=== PATIENT | male | born 1970 | race American Indian/Alaskan Native ===

== ENCOUNTER 2020-05-28 10:46 | Emergency (ER) | payer SELFPAY ==
[2020-05-28 11:17] VITALS: BP 149/107
--- NOTE | 2020-05-28 11:53 | XRay Report ---
XR chest routine 2V INDICATION / CLINICAL INFORMATION: chest pain. COMPARISON: None available. FINDINGS: SUPPORT DEVICES: None. HEART /PULMONARY VASCULATURE: No significant abnormality. LUNGS / PLEURA: No significant pulmonary or pleural abnormality. No pneumothorax. ADDITIONAL FINDINGS: No significant additional findings. IMPRESSION: 1. No acute findings. Signer Name: Alberto Graff MD Signed: 05/28/2020 11:49 AM Workstation Name: [id number]
[2020-05-28 12:39] LABS: Basophils % (Auto) 0.3 % (0.0-1.8); Eosinophils % (Auto) 0.9 % (0.0-4.3); Hematocrit 46.2 % (35.5-45.6); Hemoglobin 15.8 gm/dl (11.8-15.2); Lymphocytes # (Auto) 1.8 K/mm3 (1.2-5.4); Lymphocytes % (Auto) 36.1 % (13.4-35.0); Mean Corpuscular HGB Conc 34 % (32-34); Mean Corpuscular Volume 88 fl (84-94); Monocytes # (Auto) 0.4 K/mm3 (0.0-0.8); Platelet Count 215 K/mm3 (140-440); Red Blood Count 5.25 M/mm3 (3.65-5.03); Red Cell Distribution Width 13.7 % (13.2-15.2)
[2020-05-28 13:01] LABS: Alanine Aminotransferase 12 units/L (7-56); Albumin 3.8 g/dL (3.9-5); BUN/Creatinine Ratio 7; Blood Urea Nitrogen 9 mg/dL (9-20); Calcium 8.8 mg/dL (8.4-10.2); Hemolysis Index 3
== END 2020-05-28 13:49 | disposition left against medical advice (07) ==
LOC: ED 10:46
DX: R07.9 Chest pain, unspecified (principal); Z53.21 Procedure and treatment not carried out due to patient leaving prior to being seen by health care provider
CPT/HCPCS: 36415; 71046; 80053; 83880; 84484; 85025; 93005

== ENCOUNTER 2020-05-31 05:27 | Inpatient (IN) | payer OTHER ==
--- NOTE | 2020-05-31 06:48 | Ultrasound Report ---
ULTRASOUND ABDOMEN, LIMITED (RIGHT UPPER QUADRANT) INDICATION: RUQ Pain. COMPARISON: None available. FINDINGS: Pancreas: Visualized portion shows no significant abnormality. Liver: Mild increased echotexture characteristic for steatosis. Liver measures 16.7 cm Gallbladder: 1 cm gallstone with moderate gallbladder wall thickening and small amount of pericholecy stic fluid Bile ducts: Normal. Common Bile Duct measures 4 mm. Free fluid: None. Additional Findings: None. IMPRESSION: 1. Cholelithiasis with acute cholecystitis Signer Name: Marc Metz MD Signed: 05/31/2020 6:43 AM Workstation Name: [id number]
[2020-05-31 07:32] LABS: INR 1.25 (0.87-1.13)
[2020-05-31] MEDS ORDERED: ONDANSETRON 4 MG ODT TAB PO ONE (07:37)
[2020-05-31] MEDS ORDERED: MORPHINE 4 MG/1 ML INJ IV ONE (07:37)
[2020-05-31] MEDS ORDERED: SODIUM CHLORIDE 0.9% 1000 ML 1,000 ML IV ONE (07:38)
[2020-05-31] MEDS ORDERED: PIPERACIL/TAZOBACTA 4.5/NS 100 4.5 GM/100 ML VIAL IV ONE (07:38)
[2020-05-31 08:07] LABS: Hematocrit 49.3 % (35.5-45.6); Hemoglobin 16.8 gm/dl (11.8-15.2); Mean Corpuscular HGB Conc 34 % (32-34); Mean Corpuscular Volume 89 fl (84-94); Red Blood Count 5.57 M/mm3 (3.65-5.03)
[2020-05-31 08:08] LABS: Platelet Count 221 K/mm3 (140-440); Red Cell Distribution Width 13.5 % (13.2-15.2)
[2020-05-31] MEDS ORDERED: LACTATED RINGERS 1000 ML IV SOLN IV ONE (08:12)
--- NOTE | 2020-05-31 09:29 | Emergency Department Report ---
ED General Adult HPI - General Chief complaint: Abdominal Pain Stated complaint: RT SIDE PAIN PUI?: No Time Seen by Provider: 05/31/20 08:25 Source: patient, RN notes reviewed, old records reviewed Mode of arrival: Wheelchair Limitations: No Limitations - History of Present Illness Initial comments: The patient was evaluated in the emergency department for symptoms described in the history of present illness. He/she was evaluated in the context of the global COVID-19 pandemic, which necessitated consideration that the patient might be at risk for infection with the virus that causes COVID-19. Institutional protocols and algorithms that pertain to the evaluation of patients at risk for COVID-19 are in a state of rapid change based on information released by regulatory bodies including the CDC and federal and state organizations. These policies and algorithms were followed during the patient's care in the emergency department. Please note that these policies, procedures and recommendations changed on a rapid basis. This is a pleasant and calm 49-year-old gentleman. He is not known to myself previously. He presents to the ER today with a complaint of persistent epigastric and right upper quadrant pain, present for the past 2 to 3 days. His pain is sharp, increases with palpation, deep inspiration. Positive chills, subjective fever. No loss of taste or smell. No travel, surgery, oral contraceptive use, DVT or pulmonary embolism risk factors. No headache, neck pain, shortness of breath, positive nausea, no vomiting, no lower abdominal pain, no testicular pain. -: Gradual, days(s) Radiation: non-radiation Severity scale (0 -10): 7 Quality: aching Consistency: constant Improves with: medication, rest Worsens with: movement, other (Palpation, deep inspiration) - Related Data Allergies Allergy/AdvReac Type Severity Reaction Status Date / Time No Known Allergies Allergy Unverified 05/28/20 11:06 ED Review of Systems ROS: Stated complaint: RT SIDE PAIN Other details as noted in HPI Constitutional: chills, fever, malaise, weakness Eyes: denies: eye discharge Respiratory: denies: shortness of breath Cardiovascular: denies: chest pain Gastrointestinal: abdominal pain, nausea, vomiting Genitourinary: denies: dysuria Musculoskeletal: denies: back pain Neurological: weakness Hematological/Lymphatic: denies: easy bleeding ED Past Medical Hx - Past Medical History Previous Medical History?: No - Surgical History Past Surgical History?: No - Social History Smoking Status: Current Every Day Smoker Substance Use Type: Marijuana ED Physical Exam - General Limitations: No Limitations General appearance: alert, anxious - Head Head exam: Present: atraumatic, normocephalic - Eye Eye exam: Present: normal appearance, EOMI. Absent: nystagmus - ENT ENT exam: Present: normal exam, normal orophraynx, mucous membranes moist, andry l external ear exam - Neck Neck exam: Present: normal inspection, full ROM. Absent: tenderness, meningismus - Respiratory Respiratory exam: Absent: respiratory distress, wheezes, rales, rhonchi, stridor, decreased breath sounds - Cardiovascular Cardiovascular Exam: Present: normal rhythm, tachycardia, normal heart sounds. Absent: bradycardia, irregular rhythm, systolic murmur, diastolic murmur, rubs, gallop - GI/Abdominal GI/Abdominal exam: Present: soft, tenderness, guarding, other (Right upper quadrant tenderness. Positive Trejo sign.). Absent: distended, rebound, rigid, pulsatile mass - Rectal Rectal exam: Present: deferred - Extremities Exam Extremities exam: Present: normal inspection, full ROM, other (2+ pulses noted in the bilateral upper and lower extremities. There is no palpable cord. negative Homans sign. Muscular compartments are soft. The pelvis is stable.). Absent: pedal edema, calf tenderness - Back Exam Back exam: Present: normal inspection, full ROM. Absent: tenderness, CVA tenderness (R), CVA tenderness (L), paraspinal tenderness, vertebral tenderness - Neurological Exam Neurological exam: Present: alert, oriented X3, other (No facial droop. Tongue midline. Extraocular movements intact bilaterally. Facial sensation intact to light touch in V1, V2, V3 distribution bilaterally. 5 and a 5 strength in 4 extremities. Sensation intact to light touch in 4 extremities.). Absent: motor sensory deficit - Psychiatric Psychiatric exam: Present: anxious - Skin Skin exam: Present: warm, dry, intact, normal color. Absent: rash ED Course Vital Signs 05/31/20 05/31/20 05:36 07:40 Temperature 99.9 F H 100.6 F H Pulse Rate 116 H 118 H Respiratory 17 20 Rate Blood Pressure 126/87 121/85 O2 Sat by Pulse 94 97 Oximetry ED Medical Decision Making - Lab Data Result diagrams: 05/31/20 06:39 05/31/20 06:39 Vital Signs 05/31/20 05/31/20 05:36 07:40 Temperature 99.9 F H 100.6 F H Pulse Rate 116 H 118 H Respiratory 17 20 Rate Blood Pressure 126/87 121/85 O2 Sat by Pulse 94 97 Oximetry Lab Results 05/31/20 05/31/20 Range/Units 06:39 06:39 WBC 18.5 H (4.5-11.0) K/mm3 RBC 5.57 H (3.65-5.03) M/mm3 Hgb 16.8 H (11.8-15.2) gm/dl Hct 49.3 H (35.5-45.6) % MCV 89 (84-94) fl MCH 30 (28-32) pg MCHC 34 (32-34) % RDW 13.5 (13.2-15.2) % Plt Count 221 (140-440) K/mm3 PT 15.7 H (12.2-14.9) Sec. INR 1.25 H (0.87-1.13) - EKG Data -: EKG Interpreted by Nv EKG shows normal: sinus rhythm Rate: tachycardia - EKG Data 05/31/20 10:08 Time of interpretation, 9: 32 AM Sinus rhythm, tachycardia, 112 bpm. Left axis deviation, borderline left anterior fascicular block, left ventricular hypertrophy, QTC prolonged, 441 ms. This is an abnormal EKG. This is not a STEMI. - Radiology Data Radiology results: report reviewed, image reviewed ULTRASOUND ABDOMEN, LIMITED (RIGHT UPPER QUADRANT) INDICATION: RUQ Pain. COMPARISON: None available. FINDINGS: Pancreas: Visualized portion shows no significant abnormality. Liver: Mild increased echotexture characteristic for steatosis. Liver measures 16.7 cm Gallbladder: 1 cm gallstone with moderate gallbladder wall thickening and small amount of pericholecystic fluid Bile ducts: Normal. Common Bile Duct measures 4 mm. Free fluid: None. Additional Findings: None. IMPRESSION: 1. Cholelithiasis with acute cholecystitis Signer Name: Marc Metz MD Signed: 05/31/2020 5:43 AM Workstation Name: [id number] XR chest routine 2V INDICATION / CLINICAL INFORMATION: chest pain. COMPARISON: None available. FINDINGS: SUPPORT DEVICES: None. HEART /PULMONARY VASCULATURE: No significant abnormality. LUNGS / PLEURA: No significant pulmonary or pleural abnormality. No pneumothorax. ADDITIONAL FINDINGS: No significant additional findings. IMPRESSION: 1. No acute findings. Signer Name: Alberto Graff MD Signed: 05/28/2020 10:49 AM Workstation Name: [id number] - Medical Decision Making Differential diagnosis, including but not limited to: Sepsis, cholecystitis Assessment and plan: 49-year-old gentleman presenting with epigastric and right upper quadrant pain/tenderness, Trejo sign, suspicious for cholecystitis. Laboratory studies, right upper quadrant ultrasound were ordered prior to my personal evaluation. EKG reviewed and appreciated. Given fever, tachycardia, leukocytosis, patient ruling in for sepsis, although not septic shock. Lactic acid, lipase are pending at this time. When compared to prior laboratory studies from few days ago, has new onset mild transaminitis, and hyperbilirubinemia, As well as mild hypokalemia. Fluids, antibiotics and potassium supplementation will be administered. I contacted general surgery on-call, Dr. Aldana, and we discussed the patient's history, physical, imaging studies and pertinent laboratory studies. She will follow in consultation, and recommends MRCP to further evaluate biliary anatomy. As per this current hospital's policy, procedure and protocol, this is not an emergently required MRI, and administratively it is preferred that the inpatient team order these the studies. Hospital physician, Dr. Eliana Looney to admit I have discussed this plan of care with the patient, who verbalized understanding, and is amenable to this plan of care. Critical care attestation.: If time is entered above; I have spent that time in minutes in the direct care of this critically ill patient, excluding procedure time. ED Disposition Clinical Impression: Sepsis, Cholecystitis, Hypokalemia, Hyperbilirubinemia Disposition: OP ADMIT IP TO THIS HOSP Is pt being admited?: Yes Does the pt Need Aspirin: No Condition: Good Referrals: PRIMARY CARE,MD [Primary Care Provider] - 3-5 Days
[2020-05-31] MEDS ORDERED: HYDROmorphone 1 MG/1 ML INJ IV ONE (09:38)
[2020-05-31 09:42] LABS: BUN/Creatinine Ratio 11; Blood Urea Nitrogen 14 mg/dL (9-20)
[2020-05-31 09:43] LABS: Alanine Aminotransferase 85 units/L (7-56); Albumin 3.3 g/dL (3.9-5); Calcium 9.2 mg/dL (8.4-10.2); Hemolysis Index 8
[2020-05-31 09:46] LABS: Monocytes % (Auto) 5.2 % (0.0-7.3)
[2020-05-31] MEDS ORDERED: POTASSIUM CHLORIDE ER 20 MEQ TAB PO ONE (10:02)
[2020-05-31] MEDS ORDERED: ACETAMINOPHEN 325 MG TAB PO PRN (10:21)
[2020-05-31] MEDS ORDERED: MORPHINE 2 MG/1 ML INJ IV PRN (10:21)
[2020-05-31] MEDS ORDERED: hydrALAZINE 20 MG/1 ML INJ IV PRN (10:21)
[2020-05-31] MEDS ORDERED: ONDANSETRON 4 MG/2 ML INJ IV PRN ×2 (10:21→15:27)
--- NOTE | 2020-05-31 10:21 | Progress Note ---
Subjective Date of service: 05/31/20 Interval history: This is a pleasant and calm 49-year-old gentleman. He is not known to myself previously. He presents to the ER today with a complaint of persistent epigastric and right upper quadrant pain, present for the past 2 to 3 days. His pain is sharp, increases with palpation, deep inspiration. Positive chills, subjective fever. No loss of taste or smell. No travel, surgery, oral contraceptive use, DVT or pulmonary embolism risk factors. Objective - Constitutional Vitals: Vital Signs - 12hr 05/31/20 05/31/20 05/31/20 05:36 07:40 10:08 Temperature 99.9 F H 100.6 F H Pulse Rate 116 H 118 H Respiratory 17 20 18 Rate Blood Pressure 126/87 121/85 O2 Sat by Pulse 94 97 Oximetry - Labs CBC & Chem 7: 05/31/20 06:39 05/31/20 06:39 Labs: Abnormal lab results 05/31/20 05/31/20 05/31/20 Range/Units 06:39 06:39 06:39 WBC 18.5 H (4.5-11.0) K/mm3 RBC 5.57 H (3.65-5.03) M/mm3 Hgb 16.8 H (11.8-15.2) gm/dl Hct 49.3 H (35.5-45.6) % [place] # (Auto) 1.0 H (0.0-0.8) K/mm3 Seg Neutrophils # 16.9 H (1.8-7.7) K/mm3 PT 15.7 H (12.2-14.9) Sec. INR 1.25 H (0.87-1.13) Sodium 134 L (137-145) mmol/L Potassium 3.4 L D (3.6-5.0) mmol/L Chloride 96.7 L (98-107) mmol/L Glucose 137 H (75-100) mg/dL Total Bilirubin 1.30 H (0.1-1.2) mg/dL ALT 85 H (7-56) units/L Albumin 3.3 L (3.9-5) g/dL
[2020-05-31 10:46] LABS: Total Cells Counted 100
[2020-05-31 10:47] LABS: Platelet Estimate Consistent w Auto; RBC Morphology Normal
[2020-05-31] MEDS: POTASSIUM CHLORIDE 10 MEQ 10 MEQ/100 ML BAG IV SCH ×2 (11:51→13:24)
--- NOTE | 2020-05-31 12:21 | Consultation ---
History of Present Illness Consult date: 05/31/20 Reason for consult: gallstones - History of present illness History of present illness: 49 year old male presented to ED with a one day hx of RUQ abdominal pain nausea and vomiting. He says he has never had this pain before. An US showed gallstones with patrick-cholecystic fluid. WBC 18.5, and febrile to 100.6. Past History Past Medical History: No medical history Past Surgical History: No surgical history Social history: smoking, other (marajiauna). denies: prescription drug abuse, IV drug use Medications and Allergies Allergies Allergy/AdvReac Type Severity Reaction Status Date / Time No Known Allergies Allergy Verified 05/31/20 10:09 Active Meds: Active Medications Acetaminophen (Acetaminophen 325 Mg Tab) 650 mg PO Q4H PRN PRN Reason: Pain MILD(1-3)/Fever >100.5/MOODY Hydralazine HCl (Hydralazine 20 Mg/1 Ml Inj) 5 mg IV Q30MIN PRN PRN Reason: Hypertension Potassium Chloride (Kcl 10meq/100ml) 10 meq in 100 mls @ 100 mls/hr IV Q1H JENNIFER Stop: 05/31/20 12:59 Last Admin: 05/31/20 11:51 Dose: 100 mls/hr Documented by: Ceftriaxone Sodium (Rocephin/Ns 1 Gm/50 Ml) 1 gm in 50 mls @ 100 mls/hr IV Q12HR JENNIFER; Protocol Sodium Chloride (Nacl 0.9% 1000 Ml) 1,000 mls @ 100 mls/hr IV DIRECT JENNIFER Morphine Sulfate (Morphine 2 Mg/1 Ml Inj) 2 mg IV Q4H PRN PRN Reason: Pain, Moderate (4-6) Ondansetron HCl (Ondansetron 4 Mg/2 Ml Inj) 4 mg IV Q8H PRN PRN Reason: N/V unrelieved by Reglan Review of Systems - Constitutional poor appetite - Cardiovascular no chest pain - Respiratory no cough - Gastrointestinal abdominal pain, nausea, vomiting, no jaundice - Genitourinary no dysuria Exam Vital Signs Temp Pulse Resp BP Pulse Ox 99.9 F H 116 H 17 126/87 94 05/31/20 05:36 05/31/20 05:36 05/31/20 05:36 05/31/20 05:36 05/31/20 05:36 - General physical appearance Positive: well developed, no distress, moderate pain - Cardiovascular Heart Sounds: Present: S1 & S2 - Extremities Extremities: no ischemia - Abdomen Abdomen: Present: soft, other (tender to palpation RUQ and epigastric area). Absent: guarding, rigid Results - Labs 05/31/20 06:39 05/31/20 06:39 Abnormal lab results 05/31/20 05/31/20 05/31/20 Range/Units 06:39 06:39 06:39 WBC 18.5 H (4.5-11.0) K/mm3 RBC 5.57 H (3.65-5.03) M/mm3 Hgb 16.8 H (11.8-15.2) gm/dl Hct 49.3 H (35.5-45.6) % Andrews # (Auto) 1.0 H (0.0-0.8) K/mm3 Seg Neuts % (Manual) 91.0 H (40.0-70.0) % Lymphocytes % (Manual) 3.0 L (13.4-35.0) % Seg Neutrophils # 16.9 H (1.8-7.7) K/mm3 Seg Neutrophils # Man 16.8 H (1.8-7.7) K/mm3 Lymphocytes # (Manual) 0.6 L (1.2-5.4) K/mm3 Monocytes # (Manual) 1.1 H (0.0-0.8) K/mm3 PT 15.7 H (12.2-14.9) Sec. INR 1.25 H (0.87-1.13) Sodium 134 L (137-145) mmol/L Potassium 3.4 L D (3.6-5.0) mmol/L Chloride 96.7 L (98-107) mmol/L Glucose 137 H (75-100) mg/dL Total Bilirubin 1.30 H (0.1-1.2) mg/dL ALT 85 H (7-56) units/L Albumin 3.3 L (3.9-5) g/dL Diabetes panel 05/31/20 Range/Units 06:39 Sodium 134 L (137-145) mmol/L Potassium 3.4 L D (3.6-5.0) mmol/L Chloride 96.7 L (98-107) mmol/L Carbon Dioxide 24 (22-30) mmol/L BUN 14 (9-20) mg/dL Creatinine 1.3 (0.8-1.3) mg/dL Glucose 137 H (75-100) mg/dL Calcium 9.2 (8.4-10.2) mg/dL AST 27 (5-40) units/L ALT 85 H (7-56) units/L Alkaline Phosphatase 102 (35-129) units/L Total Protein 7.5 (6.3-8.2) g/dL Albumin 3.3 L (3.9-5) g/dL Calcium panel 05/31/20 Range/Units 06:39 Calcium 9.2 (8.4-10.2) mg/dL Albumin 3.3 L (3.9-5) g/dL Pituitary panel 05/31/20 Range/Units 06:39 Sodium 134 L (137-145) mmol/L Potassium 3.4 L D (3.6-5.0) mmol/L Chloride 96.7 L (98-107) mmol/L Carbon Dioxide 24 (22-30) mmol/L BUN 14 (9-20) mg/dL Creatinine 1.3 (0.8-1.3) mg/dL Glucose 137 H (75-100) mg/dL Calcium 9.2 (8.4-10.2) mg/dL Adrenal panel 05/31/20 Range/Units 06:39 Sodium 134 L (137-145) mmol/L Potassium 3.4 L D (3.6-5.0) mmol/L Chloride 96.7 L (98-107) mmol/L Carbon Dioxide 24 (22-30) mmol/L BUN 14 (9-20) mg/dL Creatinine 1.3 (0.8-1.3) mg/dL Glucose 137 H (75-100) mg/dL Calcium 9.2 (8.4-10.2) mg/dL Total Bilirubin 1.30 H (0.1-1.2) mg/dL AST 27 (5-40) units/L ALT 85 H (7-56) units/L Alkaline Phosphatase 102 (35-129) units/L Total Protein 7.5 (6.3-8.2) g/dL Albumin 3.3 L (3.9-5) g/dL - Imaging US - abdomen: report reviewed, image reviewed Assessment and Plan 49 year old male with acute cholecystitis likely due to cholelithiasis. Febrile, with leukocytosis and stable. Pt consented for lap lucero for today. He signed informed consent and expressed understanding of the risks and benefits.
[2020-05-31] MEDS: SODIUM CHLORIDE 0.9% 1000 ML 1,000 ML IV SCH (13:23)
--- NOTE | 2020-05-31 13:39 | Anesthesia Consultation ---
Anesthesia Consult and Med Hx Date of service: 05/31/20 - Airway Anesthetic Teeth Evaluation: Good (missing multiple ) ROM Head & Neck: Adequate Mental/Hyoid Distance: Adequate Mallampati Class: Class II Intubation Access Assessment: Probably Good - Pre-Operative Health Status ASA Pre-Surgery Classification: ASA2 Proposed Anesthetic Plan: General - Pulmonary Hx Smoking: Yes (1/2 PPD) Hx Asthma: No Hx Respiratory Symptoms: No SOB: No COPD: No Home Oxygen Therapy: No Hx Pneumonia: No Hx Sleep Apnea: No - Cardiovascular System Hx Hypertension: No Hx Coronary Artery Disease: No Hx Heart Attack/AMI: No Hx Angina: No Hx Percutaneous Transluminal Coronary Angioplasty (PTCA): No Hx Cardia Arrhythmia: No Hx Pacemaker: No Hx Internal Defibrillator: No Hx Valvular Heart Disease: No Hx Heart Murmur: No Hx Peripheral Vascular Disease: No - Central Nervous System Hx Neuromuscular Disorder: No Hx Seizures: No CVA: No Hx Back Pain: No Hx Psychiatric Problems: No - Gastrointestinal Hx Ulcer: No Hx Gastroesophageal Reflux Disease: No - Endocrine Hx Renal Disease: No Hx End Stage Renal Disease: No Hx Cirrhosis: No Hx Liver Disease: No Hx Insulin Dependent Diabetes: No Hx Non-Insulin Dependent Diabetes: No Hx Thyroid Disease: No Hx Hypothyroidism: No Hx Hyperthyroidism: No - Hematic Hx Anemia: No Hx Sickle Cell Disease: No - Other Systems Hx Alcohol Use: Yes (1/2 bottle Jin or brown ETOH daily ) Hx Substance Use: Yes (marijuana ) Hx Cancer: No Hx Obesity: No
--- NOTE | 2020-05-31 13:43 | Anesthesia Day of Surgery ---
Anesthesia Day of Surgery - Day of Surgery Patient Examined: Yes Patient H&P Reviewed: Yes Patient is NPO: Yes
[2020-05-31] MEDS ORDERED: ePHEDrine SULFATE 50 MG/1 ML INJ ONE (14:04)
[2020-05-31] MEDS ORDERED: PHENYLEPHRINE/NS 1,000 MCG/10 ML SYRINGE (OR USE) IV ONE (14:08)
[2020-05-31] MEDS ORDERED: LIDOCAINE MPF (2%) 20 MG/1 ML VIAL 5 ML ONE (14:08)
[2020-05-31] MEDS ORDERED: NEOSTIGMINE 10MG/10 ML INJ MDV ONE (14:08)
[2020-05-31] MEDS ORDERED: ONDANSETRON 4 MG/2 ML INJ ONE (14:08)
[2020-05-31] MEDS ORDERED: GLYCOPYRROLATE 0.4 MG/2 ML INJ ONE (14:08)
[2020-05-31] MEDS ORDERED: dexAMETHasone 20 MG/5 ML VIAL ONE (14:08)
[2020-05-31] MEDS ORDERED: ROCURONIUM 50 MG/5 ML INJ IV ONE (14:08)
[2020-05-31] MEDS ORDERED: fentaNYL 100 MCG/2 ML INJ ONE ×2 (14:08→14:23)
[2020-05-31] MEDS ORDERED: SUCCINYLCHOLINE CHLORIDE 200 MG/10 ML INJ MDV ONE (14:08)
[2020-05-31] MEDS ORDERED: propofoL 200 MG/20 ML VIAL IV ONE (14:09)
[2020-05-31] MEDS ORDERED: MIDAZOLAM 2 MG/2 ML INJ ONE (14:21)
[2020-05-31] MEDS ORDERED: metroNIDAZOLE/NS 500 MG/100 ML 500 MG/100 ML BAG IV ONE (14:40)
[2020-05-31] MEDS ORDERED: LIDOCAINE (1%) 10 MG/1 ML VIAL 20 ML MDV INFILTRATI ONE (15:03)
[2020-05-31] MEDS ORDERED: BUPIVACAINE/PF (0.5%) 5 MG/1 ML 30 ML VIAL INFILTRATI ONE (15:03)
[2020-05-31] MEDS ORDERED: SODIUM CHLORIDE 0.9% IRRIG SOLN 2000 ML IR ONE (15:04)
[2020-05-31] MEDS ORDERED: SODIUM CHLORIDE 0.9% IRR 1,500 ML BOTTLE IR ONE (15:04)
[2020-05-31] MEDS ORDERED: HYDROmorphone 1 MG/1 ML INJ IV PRN (15:27)
[2020-05-31] MEDS ORDERED: KETOROLAC 30 MG/1 ML INJ ONE (16:17)
[2020-05-31] MEDS ORDERED: LACTATED RINGERS 1,000 ML ONE (16:17)
[2020-05-31] MEDS ORDERED: HYDROmorphone 1 MG/1 ML INJ ONE (16:35)
--- NOTE | 2020-05-31 16:42 | History and Physical Report ---
History of Present Illness Date of examination: 05/31/20 Date of admission: 05/31/20 10:04 Chief complaint: abdominal pain History of present illness: This is a pleasant and calm 49-year-old gentleman with no prior medical History presents to the ER today with a complaint of persistent epigastric and right upper quadrant pain, present for the past 2 to 3 days. His pain is sharp, increases with palpation, deep inspiration, food intake, associated with chills, subjective fever. In the ER An US showed gallstones with patrick-cholecystic fluid. WBC 18.5, and febrile to 100.6. GS consulted, patient being admitted for acute cholecystitis. Past History Past Medical History: No medical history Past Surgical History: No surgical history Social history: smoking, alcohol abuse, other (marajiauna). denies: prescription drug abuse, IV drug use Family history: no significant family history Medications and Allergies Allergies Allergy/AdvReac Type Severity Reaction Status Date / Time No Known Allergies Allergy Verified 05/31/20 10:09 Active Meds: Active Medications Acetaminophen (Acetaminophen 325 Mg Tab) 650 mg PO Q4H PRN PRN Reason: Pain MILD(1-3)/Fever >100.5/MOODY Hydralazine HCl (Hydralazine 20 Mg/1 Ml Inj) 5 mg IV Q30MIN PRN PRN Reason: Hypertension Hydromorphone HCl (Hydromorphone 1 Mg/1 Ml Inj) 0.5 mg IV Q10MIN PRN PRN Reason: Pain , Severe (7-10) Ceftriaxone Sodium (Rocephin/Ns 1 Gm/50 Ml) 1 gm in 50 mls @ 100 mls/hr IV Q12HR JENNIFER; Protocol Sodium Chloride (Nacl 0.9% 1000 Ml) 1,000 mls @ 100 mls/hr IV DIRECT JENNIFER Last Admin: 05/31/20 13:23 Dose: 100 mls/hr Documented by: Morphine Sulfate (Morphine 2 Mg/1 Ml Inj) 2 mg IV Q4H PRN PRN Reason: Pain, Moderate (4-6) Ondansetron HCl (Ondansetron 4 Mg/2 Ml Inj) 4 mg IV Q8H PRN PRN Reason: N/V unrelieved by Ralph Ondansetron HCl (Ondansetron 4 Mg/2 Ml Inj) 4 mg IV ONCE PRN PRN Reason: Nausea And Vomiting Exam - Physical Exam Narrative exam: GENERAL: well-developed and well-nourished -[place] lying on bed estrella eared to be in no discomfort. HEENT: Normocephalic. Atraumatic. No conjunctival congestion or icterus. Patient has moist mucous membranes. NECK: Supple. Trachea midline. CHEST/LUNGS: Clear to auscultated bilaterally, breathing nonlabored. No wheezes crackles or rhonchi. HEART/CARDIOVASCULAR: Regular in rate and rhythm. S1 and S2 positive. ABDOMEN: Abdomen is soft, + right upper quadrant tender. Patient has normal bowel sounds. SKIN: There is no rash. Warm and dry. NEURO: No focal motor deficit. Follows command. MUSCULOSKELETAL: No joint effusion or tenderness. EXTRIMITY: No edema, no cyanosis or clubbing. PSYCH: Cooperative. - Constitutional Vitals: Temp Pulse Resp BP Pulse Ox 99.4 F 89 22 127/81 94 05/31/20 13:30 05/31/20 13:01 05/31/20 13:01 05/31/20 13:01 05/31/20 13:01 Results - Labs CBC & Chem 7: 05/31/20 06:39 05/31/20 06:39 Labs: Abnormal lab results 05/31/20 05/31/20 05/31/20 Range/Units 06:39 06:39 06:39 WBC 18.5 H (4.5-11.0) K/mm3 RBC 5.57 H (3.65-5.03) M/mm3 Hgb 16.8 H (11.8-15.2) gm/dl Hct 49.3 H (35.5-45.6) % Reeves # (Auto) 1.0 H (0.0-0.8) K/mm3 Seg Neuts % (Manual) 91.0 H (40.0-70.0) % Lymphocytes % (Manual) 3.0 L (13.4-35.0) % Seg Neutrophils # 16.9 H (1.8-7.7) K/mm3 Seg Neutrophils # Man 16.8 H (1.8-7.7) K/mm3 Lymphocytes # (Manual) 0.6 L (1.2-5.4) K/mm3 Monocytes # (Manual) 1.1 H (0.0-0.8) K/mm3 PT 15.7 H (12.2-14.9) Sec. INR 1.25 H (0.87-1.13) Sodium 134 L (137-145) mmol/L Potassium 3.4 L D (3.6-5.0) mmol/L Chloride 96.7 L (98-107) mmol/L Glucose 137 H (75-100) mg/dL Total Bilirubin 1.30 H (0.1-1.2) mg/dL ALT 85 H (7-56) units/L Albumin 3.3 L (3.9-5) g/dL - Imaging and Cardiology US - abdomen: report reviewed Assessment and Plan Acute cholecystitis likely due to cholelithiasis SIRS manifested with leukocytosis, fever, tachycardia -due to acute cholecystitis Mild hyponatremia, due to dehydration Hypokalemia, likely due to nausea and vomiting Abdominal pain, due to acute cholecystitis Nausea vomiting, due to acute cholecystitis --Admit to surgical unit -Continue empiric antibiotics for now, pain management, will continue aggressive IV fluid hydration, replete electrolytes, monitor BMP --Surgery consulted, plan for laparoscopic cholecystectomy today --Monitor vitals, keep n.p.o. --DVT prophylaxis with SCD
--- NOTE | 2020-05-31 17:32 | Post Anesthesia Evaluation ---
- Post Anesthesia Evaluation Patient Participated: Yes Airway Patent: Yes Stable Respiratory Function: Yes Nausea/Vomiting: No Temp > 96.8F: Yes Pain Manageable: Yes Adequeate Hydration: Yes Anesthesia Complications: No
--- NOTE | 2020-05-31 17:35 | Operative Report ---
Operative Report Operative Report: Procedure Performed: Lap cholecystectomy Date of Service: 05/31/20 Primary Surgeon: Zulma Aldana MD Assisted by: Lily Mireles DO Anesthesia: GETA, local at incision sites with 50-50 lidocaine Marcaine mixture Pre-Operative Diagnosis: cholelithiasis, cholecystitis Post-Operative Diagnosis: gangrenous cholecystitis Indications for Procedure: 49 year old male presented to ED with one day acute abdominal pain, n/v. He was febrile with leukocytosis. US showed cholelithiasis, cholecystitis. He was consented for lap lucero. Description of Procedure(s): The patient was brought to the operating room and underwent general anesthesia after lower extremity SCD were placed. The abdomen was prepped and draped in the standard fashion. IV antibiotics were given and a time out was performed. Using a veress needle via a stab incision in the umbilicus, the abdomen was insuflated to a pressure of 15mmHg. Using optivew technique, a 5mm trocar was placed just superior and to the left of the umbilicus. There was no gross injury noted to any intra-abdominal structures. After which working trocars were placed under direct visualization. A 10 mm trocar was placed in the epigastrium, and two more 5 mm trocars were inserted in the right lateral sites. The gallbladder was noted to be tight, distended past the edge of the liver, and had wall colors consistent with necrosis and severe inflammation. The over lying omentum was adhesed to the gallbladder with inflammatory adhesions, these were gently taken down with the suction. The gallbladder could not be grasped due to it being tightly distended, it was then decompressed with a laparoscopic decompression needle. The gallbladder was l ocated and grasped at the fundus and retracted up toward the patient's right shoulder. There was such intense inflammation, but a dome down technique was performed to dissect the gallbladder off of the liver bed. Once the majority of the gallbladder had been dissected free from the liver and we were working at the level of the infundibulum, the cystic artery and duct were skeletonized. These were the only tubular structures traveling into the gallbladder. Both structures were clipped with 5 mm clips, 2 proximal and 1 distal. They were then transected with scissors. There was a small area of bleeding at the liver bed that was controlled after applying pressure with Surgicel. The endocatch bag was placed in the abdomen and the gallbladder was then removed from the abdomen. The liver bed was examined and the trocars removed under direct visualization. The insufflation was then terminated. The epigastric incision was closed with a 0 Vicryl suture. The skin incisions were closed using 4-0 Monocryl sutures. All the wounds dressed with dermabond. The patient tolerated the procedure well, was extubated and taken to the recovery room in satisfactory condition. Finding(s): Gangrenous gallbladder Intra-Operative Complications: none Specimens Removed: Gallbladder Estimated Blood Loss: 50ml Complications: none immediate
[2020-05-31] MEDS: cefTRIAXone/NS 1 GM/50 ML 1 GM/50 ML BAG IV SCH (22:00)
[2020-06-01] MEDS ORDERED: cefTRIAXone/NS 1 GM/50 ML IVPB IV ONE
[2020-06-01 08:34] LABS: BUN/Creatinine Ratio 16; Blood Urea Nitrogen 16 mg/dL (9-20); Calcium 8.6 mg/dL (8.4-10.2); Hemolysis Index 3
[2020-06-01 08:45] LABS: Hematocrit 41.2 % (35.5-45.6); Hemoglobin 13.9 gm/dl (11.8-15.2); Mean Corpuscular HGB Conc 34 % (32-34); Mean Corpuscular Volume 89 fl (84-94); Platelet Count 217 K/mm3 (140-440); Red Blood Count 4.63 M/mm3 (3.65-5.03); Red Cell Distribution Width 13.5 % (13.2-15.2)
[2020-06-01] MEDS: KETOROLAC 30 MG/1 ML INJ IV SCH ×3 (09:55→20:30)
[2020-06-01 11:37] LABS: Alanine Aminotransferase 76 units/L (7-56); Albumin 2.7 g/dL (3.9-5); BUN/Creatinine Ratio 15; Blood Urea Nitrogen 15 mg/dL (9-20); Hemolysis Index 10
--- NOTE | 2020-06-01 12:00 | Progress Note ---
Subjective Date of service: 06/01/20 Interval history: This is a pleasant and calm 49-year-old gentleman with no prior medical History presents to the ER today with a complaint of persistent epigastric and right upper quadrant pain, present for the past 2 to 3 days. His pain is sharp, increases with palpation, deep inspiration, food intake, associated with chills, subjective fever. In the ER An US showed gallstones with patrick-cholecystic fluid. WBC 18.5, and febrile to 100.6. GS consulted, patient being admitted for acute cholecystitis. 06/01 patient is alert and oriented and resting in the bed, he offers no specific complaints. Denies nausea, vomiting or abdominal pain. Lab results reviewed General surgery note and surgical operative note reviewed Assessment and plan Gangrenous cholecystitis Status post lap cholecystectomy Leukocytosis Improving post surgery WBC count down from 18.5-15 K today Continue antibiotic IV Recheck CBC in a.m. If there is further drop may likely discharge patient in a.m. Hypokalemia Mild Improved Hyperglycemia Check A1c Objective - Constitutional Vitals: Vital Signs - 12hr 06/01/20 06/01/20 06/01/20 04:46 05:04 07:27 Temperature 98.0 F 98.9 F Pulse Rate 74 84 Respiratory 18 20 Rate Blood Pressure 118/86 132/90 O2 Sat by Pulse 99 96 Oximetry 06/01/20 10:56 Temperature 98.0 F Pulse Rate 88 Respiratory 20 Rate Blood Pressure 131/85 O2 Sat by Pulse 95 Oximetry - Labs CBC & Chem 7: 06/01/20 08:04 06/01/20 10:43 Labs: Abnormal lab results 06/01/20 06/01/20 06/01/20 Range/Units 08:04 08:04 10:43 WBC 15.8 H (4.5-11.0) K/mm3 Sodium 136 L 136 L (137-145) mmol/L Glucose 166 H 158 H (75-100) mg/dL AST 41 H (5-40) units/L ALT 76 H (7-56) units/L Albumin 2.7 L (3.9-5) g/dL
--- NOTE | 2020-06-01 12:18 | Progress Note ---
Assessment and Plan POd#1 s/p lap lucero for cholelithiasis and gangrenous cholecystitis. Afebrile and stable. Tolerating diet. Can d/c today if ok with hospitalist. Can follow up with me in the office in two weeks. Needs to complete 5 days of abx, script left in chart. Subjective Date of service: 06/01/20 Patient Reports: Positive: feels better, pain is less, tolerating liquids well, afebrile (no acute events overnight. Pt says he feels much better.) Objective Vital Signs - 12hr 06/01/20 06/01/20 06/01/20 04:46 05:04 07:27 Temperature 98.0 F 98.9 F Pulse Rate 74 84 Respiratory 18 20 Rate Blood Pressure 118/86 132/90 O2 Sat by Pulse 99 96 Oximetry 06/01/20 10:56 Temperature 98.0 F Pulse Rate 88 Respiratory 20 Rate Blood Pressure 131/85 O2 Sat by Pulse 95 Oximetry - General physical appearance well developed, no distress, no pain - Respiratory normal expansion, normal respiratory effort - Abdomen soft, not distended, other (incisions c/d/i, appropriately tender to palpation) - Labs 06/01/20 08:04 06/01/20 10:43 Diabetes panel 06/01/20 06/01/20 Range/Units 08:04 10:43 Sodium 136 L 136 L (137-145) mmol/L Potassium 4.6 D 4.1 (3.6-5.0) mmol/L Chloride 104.3 103.0 (98-107) mmol/L Carbon Dioxide 25 23 (22-30) mmol/L BUN 16 15 (9-20) mg/dL Creatinine 1.0 1.0 (0.8-1.3) mg/dL Glucose 166 H 158 H (75-100) mg/dL Calcium 8.6 9.0 (8.4-10.2) mg/dL AST 41 H (5-40) units/L ALT 76 H (7-56) units/L Alkaline Phosphatase 88 (35-129) units/L Total Protein 6.8 (6.3-8.2) g/dL Albumin 2.7 L (3.9-5) g/dL Calcium panel 06/01/20 06/01/20 Range/Units 08:04 10:43 Calcium 8.6 9.0 (8.4-10.2) mg/dL Albumin 2.7 L (3.9-5) g/dL Pituitary panel 06/01/20 06/01/20 Range/Units 08:04 10:43 Sodium 136 L 136 L (137-145) mmol/L Potassium 4.6 D 4.1 (3.6-5.0) mmol/L Chloride 104.3 103.0 (98-107) mmol/L Carbon Dioxide 25 23 (22-30) mmol/L BUN 16 15 (9-20) mg/dL Creatinine 1.0 1.0 (0.8-1.3) mg/dL Glucose 166 H 158 H (75-100) mg/dL Calcium 8.6 9.0 (8.4-10.2) mg/dL Adrenal panel 06/01/20 06/01/20 Range/Units 08:04 10:43 Sodium 136 L 136 L (137-145) mmol/L Potassium 4.6 D 4.1 (3.6-5.0) mmol/L Chloride 104.3 103.0 (98-107) mmol/L Carbon Dioxide 25 23 (22-30) mmol/L BUN 16 15 (9-20) mg/dL Creatinine 1.0 1.0 (0.8-1.3) mg/dL Glucose 166 H 158 H (75-100) mg/dL Calcium 8.6 9.0 (8.4-10.2) mg/dL Total Bilirubin 0.40 (0.1-1.2) mg/dL AST 41 H (5-40) units/L ALT 76 H (7-56) units/L Alkaline Phosphatase 88 (35-129) units/L Total Protein 6.8 (6.3-8.2) g/dL Albumin 2.7 L (3.9-5) g/dL
[2020-06-01] MEDS: cefTRIAXone/NS 1 GM/50 ML 1 GM/50 ML BAG IV SCH ×2 (12:59→22:00)
[2020-06-01] MEDS: SODIUM CHLORIDE 0.9% 1000 ML 1,000 ML IV SCH (17:54)
[2020-06-02] MEDS: KETOROLAC 30 MG/1 ML INJ IV SCH (02:30)
[2020-06-02] MEDS: SODIUM CHLORIDE 0.9% 1000 ML 1,000 ML IV SCH (04:55)
[2020-06-02 05:00] LABS: Hematocrit 37.8 % (35.5-45.6); Hemoglobin 12.8 gm/dl (11.8-15.2); Mean Corpuscular HGB Conc 34 % (32-34); Mean Corpuscular Volume 89 fl (84-94); Platelet Count 225 K/mm3 (140-440); Red Blood Count 4.27 M/mm3 (3.65-5.03); Red Cell Distribution Width 13.5 % (13.2-15.2)
[2020-06-02 05:50] LABS: BUN/Creatinine Ratio 17; Blood Urea Nitrogen 15 mg/dL (9-20); Calcium 8.3 mg/dL (8.4-10.2); Hemolysis Index 0
[2020-06-02 07:50] VITALS: BP 141/83
--- NOTE | 2020-06-02 09:56 | Discharge Summary ---
Providers - Providers Date of Admission: 06/01/20 06:28 Date of discharge: 06/02/20 Attending physician: OLGA ACEVEDO 05/31/20 09:38 Consult to Physician [CONS] Urgent Comment: Consulting Provider: VALENTINA FISCHER Physician Instructions: Reason For Exam: Sepsis secondary to cholecystitis Primary care physician: DEICER REPAIRER Hospitalization Condition: Good Procedures: Laparoscopic cholecystectomy Hospital course: HPI: This is a pleasant and calm 49-year-old gentleman with no prior medical History presents to the ER today with a complaint of persistent epigastric and right upper quadrant pain, present for the past 2 to 3 days. His pain is sharp, increases with palpation, deep inspiration, food intake, associated with chills, subjective fever. In the ER An US showed gallstones with patrick-cholecystic fluid. WBC 18.5, and febrile to 100.6. GS consulted, patient being admitted for acute cholecystitis. 06/01 patient is alert and oriented and resting in the bed, he offers no specific complaints. Denies nausea, vomiting or abdominal pain. Lab results reviewed General surgery note and surgical operative note reviewed 06/02 patient is alert and oriented and he offers no specific complaints. He denies any nausea or fever or abdominal pain General surgery note reviewed. Patient is medically stable for discharge Assessment and plan Gangrenous cholecystitis Status post lap cholecystectomy Leukocytosis-improving well Improving post surgery WBC count down from 18.5-15 > 12.6 today Complete 5 days of antibiotic therapy per recommendations of general surgery Hypokalemia Mild Improved Hyperglycemia A1c 5.8 Disposition: - TO HOME OR SELFCARE Final Discharge Diagnosis (Prints w/discharge instructions): Acute gangrenous cholecystitis Time spent for discharge: 34 min Core Measure Documentation - Palliative Care Palliative Care/ Comfort Measures: Not Applicable - Core Measures Any of the following diagnoses?: none Exam - Constitutional Vitals: Temp Pulse Resp BP Pulse Ox 98.3 F 76 20 141/83 95 06/02/20 07:33 06/02/20 07:33 06/02/20 07:33 06/02/20 07:33 06/02/20 07:33 General appearance: Present: no acute distress, well-nourished - EENT Eyes: Present: PERRL, EOM intact ENT: hearing intact, no thrush - Neck Neck: Present: supple, normal ROM. Absent: masses or JVD - Respiratory Respiratory effort: normal Respiratory: bilateral: CTA - Cardiovascular Rhythm: regular Heart Sounds: Present: S1 & S2 - Extremities Extremities: No edema - Abdominal General gastrointestinal: Present: soft Male genitourinary: Present: deferred - Rectal Rectal Exam: deferred - Integumentary Integumentary: Present: clear - Musculoskeletal Musculoskeletal: strength equal bilaterally - Psychiatric Psychiatric: appropriate mood/affect - Neurologic Neurologic: no focal deficits Plan Activity: advance as tolerated Weight Bearing Status: Full Weight Bearing Diet: regular, low fat Wound: keep clean and dry Follow up with: PRIMARY CARE, [Primary Care Provider] - 3-5 Days VALENTINA FISCHER MD [Staff Physician] - 14 Days Prescriptions: levoFLOXacin [Levaquin] 750 mg PO QDAY #5 tablet oxyCODONE /ACETAMINOPHEN [Percocet 5/325] 1 tab PO Q6HR PRN 10 Days #20 tab PRN Reason: Pain , Severe (7-10)
[2020-06-02] MEDS ORDERED: cefTRIAXone/NS 2 GM/100 ML 2 GM/100 ML BAG IV SCH (10:00)
--- NOTE | 2020-06-03 11:05 | Electrocardiograph Report ---
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
== END 2020-06-02 17:35 | disposition home or self-care (01) | DRG 854 ==
LOC: ED 05:27 → 3A 10:04 → 3B-SURG 19:00 → OBSVTOIN 06-01 06:28
PROVIDERS: ADMIT Internal Medicine; ATTEND Internal Medicine
PROC: 0FT44ZZ Resection of Gallbladder, Percutaneous Endoscopic Approach (ICD-10-PCS; principal; 2020-05-27)
DX: A41.9 Sepsis, unspecified organism (principal); K80.00 Calculus of gallbladder with acute cholecystitis without obstruction; E87.1 Hypo-osmolality and hyponatremia; E80.6 Other disorders of bilirubin metabolism; E87.6 Hypokalemia; F12.90 Cannabis use, unspecified, uncomplicated; E86.0 Dehydration; F17.210 Nicotine dependence, cigarettes, uncomplicated; K82.A1 Gangrene of gallbladder in cholecystitis; R73.9 Hyperglycemia, unspecified; Z79.899 Other long term (current) drug therapy; Z79.891 Long term (current) use of opiate analgesic; Z79.01 Long term (current) use of anticoagulants
CPT/HCPCS: 36415; 76705; 80048; 80053; 82140; 83036; 83690; 85007; 85025; 85027; 85610; 87040; 88304; 93005; G0378; A4217; J0330; J0696; J1100; J1170; J1885; J2250; J2270; J2370; J2405; J2543; J2704; J2710; J3010; J3480; J7030; J7120; Q0162